=== PATIENT | male | born 1950 | race Caucasian/White ===

== ENCOUNTER 2017-02-17 04:41 | Inpatient (IN) | payer MEDICARE, OTHER ==
[~2017-02-17 04:41] MED LIST: 24 HOUR ALLER15.8 ML; AFRIN15 ML NS; AFRIN30 ML; ALBUTEROL SULF8.5 G1 IH; ANDRODERM TD; ANDRODERM1 EAC2 TD; ANDROGEL150 GM TD; ANDROGEL5 GM; ANDROGEL5 GM TD; APAP325 MG; ARTIFICIAL TEA1 EAC2 OP; ASPIRIN EC81 MG PO; ATIVAN1 MG PO; BENTYL10 MG PO; BUPIVACAINE; BUPROPION XL300 M1 PO; BUSPIRONE HCL10 MG PO; CELEXA20 MG PO; CELEXA40 MG PO; CLONAZEPAM0.5 M2 PO; CLONAZEPAM0.5 MG PO; CLONAZEPAM1 M1 PO; CLONAZEPAM1 M2 PO; COLACE100 M1 PO; CYMBALTA60 M1 PO; DAIRY AID3000 UNI1 PO; DIAZEPAM5 M; DOCUSATE SODIU100 M2 PO; DURAGESIC1 PATCH .7 TOP; ETODOLAC400 MG; ETODOLAC400 MG PO; FLOMAX0.4 M1 PO; FUROSEMIDE40 M2 PO; FUROSEMIDE40 MG PO; GABAPENTIN300 MG PO; GABAPENTIN400 M1 PO; GABAPENTIN400 MG PO; HYDROCODONE; HYDROMORPHONE; HYDROXYZINE HCL25 MG; HYDROXYZINE HCL25 MG PO; IBUPROFEN200 M1 PO; IBUPROFEN400 M1 PO; IBUPROFEN400 MG PO; IMITREX100 MG PO; KETOCONAZOLE15 GM TP; KLONOPIN1 MG PO; LANSOPRAZOLE30 MG PO; LEVOXYL75 MCG PO; LIDOCAINE700 M1 TP; LIDODERM30 EA; LORTAB 5/5001 EA PO; METAXALONE800 M1 PO; METHOCARBAMOL750 M1 PO; MIRALAX17 G1 PO; MIRALAX17 G2 PO; MONTELUKAST SOD10 M2 PO; MORPHINE PUMP; MUCINEX600 M1 PO; NORCO 5/3251 TAB PO; OMEPRAZOLE20 M2 PO; OMEPRAZOLE20 MG; OMEPRAZOLE20 MG PO; OXYCODONE HCL E80 MG PO; OXYCODONE HCL10 M2 PO; OXYCODONE HCL5 MG PO; OXYCODONE/APAP PO; OXYCONTIN PO; OXYCONTIN15 MG PO; OXYCONTIN30 M1 PO; OXYCONTIN40 M1 PO; OXYCONTIN40 M2 PO; OXYCONTIN60 MG PO; PAROXETINE HCL40 MG; PHENERGAN25 M2 RC; PREVACID30 M2 PO; PREVACID30 MG PO; PRILOSEC20 M1 PO; PROTONIX40 M2 PO; PROVENTIL HFA6.7 G1 INH; QUETIAPINE FUM100 MG PO; RANITIDINE HCL300 MG PO; REGLAN10 MG PO; REQUIP0.25 M1 PO; REQUIP0.25 MG PO; REQUIP1 M1 PO; ROPINIROLE HC0.25 MG PO; ROPINIROLE HCL1 M1 PO; ROZEREM8 MG; ROZEREM8 MG PO; SEROQUEL100 M2 PO; SEROQUEL400 M1 PO; SIMETHICONE80 M3 PO; SIMVASTATIN20 MG PO; SIMVASTATIN40 M1 PO; SIMVASTATIN40 MG PO; SUDAFED 12 HOU120 M1 PO; TESTOSTERO200 MG/1 M IM; TOPAMAX200 M1 PO; TOPAMAX200 MG PO; VALIUM5 M1 PO; VITAMIN C250 MG/TAB PO; WELLBUTRIN SR200 MG PO; ZANAFLEX4 M PO; ZANAFLEX4 M3 PO; ZANTAC150 MG PO; ZOCOR20 MG; ZOCOR20 MG PO; ZOCOR80 MG PO; ZOFRAN ODT4 MG/UDTAB PO; ZOFRAN ODT8 MG/TAB PO; ZOMIG5 M1 PO; [UNRECOGNIZED DRUG - OTHER]
[2017-02-17 06:08] LABS: BASO % 0.1 % (0-2); HCT-HEMATOCRIT 43.9 % (36.0-53.5); HGB-HEMOGLOBIN 15.4 gm/dl (13.5-17.0); IMMATURE GRANULOCYTES ABSOLUTE 0.01 tho/cmm (0-0.03); IMMATURE GRANULOCYTES PERCENT 0.1 % (0-0.3); LYMPH % 7.7 % (20-45); LYMPH ABSOLUTE COUNT 0.7 tho/cmm (0.8-4.5); MCHC MEAN CORPUSCULAR HGB CONC 35.1 % (32.0-36.0); MCV (MEAN CELL VOLUME) 85.6 fl (82.0-96.0); MEAN PLATELET VOLUME 9.4 cmc (9.4-12.4); MONO % 5.6 % (0-12); MONOCYTE ABSOLUTE COUNT 0.5 tho/cmm (0.0-1.2); NEUTROPHILS % 86.5 % (40-80); PLATELET COUNT 202 tho/cmm (150-450); RED BLOOD COUNT 5.13 mil/cmm (4.40-5.70); RED CELL DISTRIBUTION WIDTH 13.7 % (12.4-16.4); WHITE BLOOD COUNT 9.2 tho/cmm (4.0-10.0)
[2017-02-17 06:32] LABS: ALB/GLOB RATIO 1.1 (0.8-2.0); ALKALINE PHOSPHATASE 47 U/L (33-138); ALT/SGPT 21 U/L (12-78); ANION GAP 19 mmol/L (0-20); AST/SGOT 16 U/L (10-40); BILIRUBIN,TOTAL 0.9 mg/dl (0.0-1.5); BLOOD UREA NITROGEN 18 mg/dl (6-24); CALCIUM 9.9 mg/dl (8.5-10.5); CARBON DIOXIDE-VENOUS 18 mmol/L (22-32); CHLORIDE 104 mmol/l (96-110); CREATININE 1.36 mg/dl (0.60-1.30); GLUCOSE 156 mg/dL (70-110); LIPASE 45 U/L (73-393); POTASSIUM 3.8 mmol/L (3.7-5.1); SODIUM 137 mmol/L (135-145); eGFR VALUE FOR BLACK 62 mL/Min
[2017-02-17 06:33] LABS: ALBUMIN 4.5 g/dl (3.5-5.0)
[2017-02-17] MEDS ORDERED: ZANTAC300 M3 PO (07:00)
[2017-02-17] MEDS ORDERED: AFRIN30 ML (07:01)
[2017-02-17] MEDS ORDERED: ARTIFICIAL TEAR1512 EACH EYE (07:01)
[2017-02-17] MEDS ORDERED: MUCINEX600 M1 PO (07:02)
[2017-02-17] MEDS ORDERED: MUCUS RELIEF400 M1 PO (07:02)
[2017-02-17 07:32] LABS: URINE BILIRUBIN NEGATIVE (NEG); URINE BLOOD NEGATIVE (NEG); URINE GLUCOSE (UA) NEGATIVE (NEG); URINE KETONE LARGE (NEG); URINE LEUKOCYTE ESTERASE POSITIVE (NEG); URINE NITRITE NEGATIVE (NEG); URINE PROTEIN MODERATE (NEG)
[2017-02-17 07:33] LABS: URINE APPEARANCE CLEAR; URINE COLOR YELLOW
[2017-02-17 07:41] LABS: URINE RBC 0 /[HPF] (0-5); URINE WBC 0 /[HPF] (0-5)
[2017-02-18 05:16] LABS: BASO % 0.1 % (0-2); HCT-HEMATOCRIT 39.7 % (36.0-53.5); HGB-HEMOGLOBIN 13.7 gm/dl (13.5-17.0); IMMATURE GRANULOCYTES ABSOLUTE 0.03 tho/cmm (0-0.03); IMMATURE GRANULOCYTES PERCENT 0.3 % (0-0.3); LYMPH % 10.4 % (20-45); LYMPH ABSOLUTE COUNT 1.2 tho/cmm (0.8-4.5); MCH (MEAN CORPUSCULAR HGB) 29.8 pg (28.0-32.0); MCHC MEAN CORPUSCULAR HGB CONC 34.5 % (32.0-36.0); MCV (MEAN CELL VOLUME) 86.3 fl (82.0-96.0); MEAN PLATELET VOLUME 9.5 cmc (9.4-12.4); MONO % 8.1 % (0-12); MONOCYTE ABSOLUTE COUNT 0.9 tho/cmm (0.0-1.2); NEUTROPHIL ABSOLUTE COUNT 9.2 tho/cmm (1.6-8.0); NEUTROPHIL-AUTOMATED 9.2 tho/cmm (1.6-8.0); NEUTROPHILS % 81.1 % (40-80); PLATELET COUNT 169 tho/cmm (150-450); RED CELL DISTRIBUTION WIDTH 14.1 % (12.4-16.4); WHITE BLOOD COUNT 11.3 tho/cmm (4.0-10.0)
[2017-02-18 05:39] LABS: ANION GAP 14 mmol/L (0-20); BLOOD UREA NITROGEN 15 mg/dl (6-24); CALCIUM 8.8 mg/dl (8.5-10.5); CARBON DIOXIDE-VENOUS 21 mmol/L (22-32); CHLORIDE 108 mmol/l (96-110); GLUCOSE 115 mg/dL (70-110); MAGNESIUM 1.9 mg/dl (1.8-2.6); POTASSIUM 3.4 mmol/L (3.7-5.1); SODIUM 140 mmol/L (135-145); eGFR VALUE FOR BLACK 90 mL/Min
[2017-02-19 05:39] LABS: BASO % 0.3 % (0-2); EOS % 0.8 % (0-7); EOSINOPHIL ABSOLUTE COUNT 0.1 tho/cmm (0.0-0.7); HCT-HEMATOCRIT 37.6 % (36.0-53.5); HGB-HEMOGLOBIN 12.8 gm/dl (13.5-17.0); IMMATURE GRANULOCYTES ABSOLUTE 0.02 tho/cmm (0-0.03); IMMATURE GRANULOCYTES PERCENT 0.3 % (0-0.3); LYMPH % 20.4 % (20-45); LYMPH ABSOLUTE COUNT 1.3 tho/cmm (0.8-4.5); MCH (MEAN CORPUSCULAR HGB) 29.4 pg (28.0-32.0); MCV (MEAN CELL VOLUME) 86.2 fl (82.0-96.0); MEAN PLATELET VOLUME 9.3 cmc (9.4-12.4); MONO % 9.3 % (0-12); MONOCYTE ABSOLUTE COUNT 0.6 tho/cmm (0.0-1.2); NEUTROPHIL ABSOLUTE COUNT 4.4 tho/cmm (1.6-8.0); NEUTROPHIL-AUTOMATED 4.4 tho/cmm (1.6-8.0); NEUTROPHILS % 68.9 % (40-80); PLATELET COUNT 139 tho/cmm (150-450); RED BLOOD COUNT 4.36 mil/cmm (4.40-5.70); RED CELL DISTRIBUTION WIDTH 13.9 % (12.4-16.4); WHITE BLOOD COUNT 6.4 tho/cmm (4.0-10.0)
[2017-02-19 05:48] LABS: C-REACTIVE PROTEIN <0.3 mg/dl (0-0.9)
[2017-02-19 06:28] LABS: PROCALCITONIN <0.05 ng/ml (0.05-0.09)
[2017-02-19 06:30] LABS: ESR-ERYTHROCYTE SED RATE 11 mm/hr (0-20)
[2017-02-19] MEDS ORDERED: CULTURELLE1 EAC1 PO (12:28)
== END 2017-02-19 14:45 | DRG 392 ==
LOC: EDMED 04:41 → EMR2 08:51 → CAR1 13:00 → 5WE 17:50
PROVIDERS: Emergency Medicine; Physician Assistant; ADMIT Internal Medicine
DX: R10.84 Generalized abdominal pain (principal); E86.0 Dehydration; R11.2 Nausea with vomiting, unspecified; E87.6 Hypokalemia; K58.9 Irritable bowel syndrome, unspecified; G89.29 Other chronic pain; M79.7 Fibromyalgia; M54.9 Dorsalgia, unspecified; R53.81 Other malaise; Z90.49 Acquired absence of other specified parts of digestive tract; Z88.0 Allergy status to penicillin; Z88.2 Allergy status to sulfonamides; Z88.5 Allergy status to narcotic agent; Z88.8 Allergy status to other drugs, medicaments and biological substances; Z79.82 Long term (current) use of aspirin; Z79.891 Long term (current) use of opiate analgesic; Z79.899 Other long term (current) drug therapy
CPT/HCPCS: C9113; J0744; J1170; J2060; J2405; J2550; J7030; Q9967